=== PATIENT | female | born 1985 | race Caucasian/White ===

== ENCOUNTER → 2017-03-31 | Outpatient (CLI) | payer BC ==
--- NOTE | 2017-03-31 22:09 | US ---
EXAMINATION TYPE: US transvaginal plus Dopplers DATE OF EXAM: 03/31/2017 2:12 PM COMPARISON: NONE CLINICAL HISTORY: 31-year-old female N92.6 Irregular Menses. Menses every 2 weeks x several months th en regular menses again TECHNIQUE: Transvaginal (TV). Color Doppler and spectral waveform analysis of the ovarian arteries a nd veins. Date of LMP: 03/24/2017 FINDINGS: Uterus: Anteverted measuring 6.5 x 3.8 x 2.6 cm. Small cervical nabothian cyst measuring 4 mm. Endometrial Stripe: 0.6 cm, within normal limits. Right Ovary: 4.9 x 2.9 x 3.0 cm, mildly enlarged with a volume of 22.1 mL secondary to multiple foll icles, largest measuring 2.1 cm. Satisfactory arterial and venous flow is present. Left Ovary: 3.8 x 2.5 x 2.4 cm with a volume of 11.7 mL. Numerous small follicles are present within measuring up to 8 mm. There is satisfactory arterial and venous flow. No evident adnexal abnormality or cul-de-sac free fluid. IMPRESSION: 1. Prominent follicular change in both ovaries. The right ovary is mildly enlarged due to larger foll icles and a dominant follicle measuring 2.1 cm. 2. No sonographic evidence for ovarian torsion.
== END | disposition home or self-care (01) ==
LOC: RADUSWWP 13:31
PROVIDERS: ATTEND Family Medicine
DX: N83.8 Other noninflammatory disorders of ovary, fallopian tube and broad ligament (principal); N92.6 Irregular menstruation, unspecified
CPT/HCPCS: 76830

== ENCOUNTER → 2018-12-21 | Outpatient (CLI) | payer BC ==
--- NOTE | 2018-12-21 10:24 | US ---
EXAMINATION TYPE: Transabdominal DATE OF EXAM: 02/14/18 COMPARISON: NONE CLINICAL HISTORY: O00.9 ECTOPIC . Spotting and cramping EXAM PERFORMED: Transvaginal (TV) and Transabdominal (TA) EXAM MEASUREMENTS: GESTATIONAL AGE / DATING Physician Established: Not yet established Dates by LMP: (8 weeks/2 days) EDC: 07/31/2019 Dates by First Scan: No previous this is first scan Dates by Current Scan for: No IUP visualized MATERNAL ANATOMY Uterus: 8.4 x 3.2 x 3.7 cm Right Ovary: 3.4 x 2.6 x 2.1 cm Left Ovary: 2.4 x 2.1 x 1.4 cm Post CDS / Adnexa: Complex area visualized right ovary, unsure of eitiology Presence of free fluid: No free fluidNo Presence of corpus luteal cyst: Cystic area right ovary measuring 1.9 x 1.6 x 2.1 cm Presence of subchorionic bleed: No GESTATION / SURVEY IUP: No IUP visualized Date of LMP: 10/24/2018 Beta HcG (if available): Not available at this time No IUP visualized at this time. Complex area visualized adjacent to the right ovary of uncertain etio logy. IMPRESSION: 1. No evidence for intrauterine at this time. 2. I cannot exclude ectopic right ovary given thick walled cyst. Correlate with the serial beta hCG and/or ultrasound.
[2018-12-21 11:02] LABS: Basophils % (A) 0 %; Eosinophils # (A) 0.1 k/uL (0-0.7); Eosinophils % (A) 1 %; HCT 40.6 % (34.0-46.0); HGB 13.9 gm/dL (11.4-16.0); Lymphocytes # (A) 1.8 k/uL (1.0-4.8); Lymphocytes % (A) 20 %; MCH 32.4 pg (25.0-35.0); MCHC 34.3 g/dL (31.0-37.0); MCV 94.5 fL (80.0-100.0); Mean Platelet Volume 7.1; Monocytes # (A) 0.4 k/uL (0-1.0); Monocytes % (A) 5 %; Neutrophils # (A) 6.4 k/uL (1.3-7.7); Neutrophils % (A) 73 %; Platelet Count 287 k/uL (150-450); RBC 4.29 m/uL (3.80-5.40); WBC 8.8 k/uL (3.8-10.6)
== END | disposition home or self-care (01) ==
LOC: RADUSWWP 09:24
PROVIDERS: ATTEND Nurse Practitioner Family
DX: O03.9 Complete or unspecified spontaneous abortion without complication (principal)
CPT/HCPCS: 76801; 76817; 84702; 85025; 86850; 86900; 86901